=== PATIENT | female | born 1970 | race Caucasian/White ===

== ENCOUNTER → 2016-04-30 | Outpatient (REF) | payer OTHER ==
[~2016-04-30] MED LIST: CALCLIQ4 PO; CYAN25TA PO; MULTCAP PO; VITA200016 PO; VITA50003 PO; XANA1TAB2 PO; ZYRT10CA PO
== END ==
LOC: M SFHCWAGY 11:59
PROVIDERS: ATTEND Nurse Practitioner Family
DX: Z12.4 Encounter for screening for malignant neoplasm of cervix (principal)

== ENCOUNTER → 2016-05-10 | Outpatient (REF) | payer OTHER ==
[2016-05-10 18:37] LABS: MEAN CORPUSCULAR HEMOGLOBIN 25.6 pg (27.0-33.0); MEAN CORPUSCULAR HGB CONC 31.6 g/dl (32.0-36.5); MEAN CORPUSCULAR VOLUME 81.1 fl (80.0-96.0); RED CELL DISTRIBUTION WIDTH 15.3 % (11.5-14.5); WHITE BLOOD COUNT 4.1 K/mm3 (4.0-10.0)
[2016-05-10 18:54] LABS: VITAMIN B12 LEVEL 270 PG/ML (247-911)
[2016-05-10 18:59] LABS: ALBUMIN 3.4 GM/DL (3.2-5.2); ALKALINE PHOSPHATASE 110 U/L (45-117); ALT/SGPT 23 U/L (12-78); ANION GAP 7 MEQ/L (8-16); AST/SGOT 15 U/L (15-37); BILIRUBIN,TOTAL 0.4 MG/DL (0.2-1.0); BLOOD UREA NITROGEN 12 MG/DL (7-18); CALCIUM LEVEL 8.1 MG/DL (8.5-10.1); CARBON DIOXIDE LEVEL 28 MEQ/L (21-32); CHLORIDE LEVEL 105 MEQ/L (98-107); CREATININE FOR GFR 0.65 MG/DL (0.55-1.02); FERRITIN 4 NG/ML (8-252); GLOMERULAR FILTRATION RATE > 60.0 (>58); GLUCOSE, FASTING 89 MG/DL (70-105); POTASSIUM SERUM 4.4 MEQ/L (3.5-5.1); SODIUM LEVEL 140 MEQ/L (136-145); TOTAL PROTEIN 6.8 GM/DL (6.4-8.2)
== END ==
LOC: M SFHCLERA 14:17
PROVIDERS: ATTEND Physician Assistant
DX: D50.9 Iron deficiency anemia, unspecified (principal); E55.9 Vitamin D deficiency, unspecified

== ENCOUNTER → 2016-08-30 | Outpatient (REF) | payer OTHER ==
[2016-08-30 19:05] LABS: MEAN CORPUSCULAR HEMOGLOBIN 27.5 pg (27.0-33.0); MEAN CORPUSCULAR HGB CONC 32.1 g/dl (32.0-36.5); MEAN CORPUSCULAR VOLUME 85.6 fl (80.0-96.0); RED CELL DISTRIBUTION WIDTH 14.9 % (11.5-14.5); WHITE BLOOD COUNT 4.2 K/mm3 (4.0-10.0)
[2016-08-30 19:44] LABS: FERRITIN 5 NG/ML (8-252)
== END ==
LOC: M SFHCLERA 11:16
PROVIDERS: ATTEND Physician Assistant
DX: D50.8 Other iron deficiency anemias (principal)

== ENCOUNTER → 2017-02-07 | Outpatient (REF) | payer MEDICAID ==
[~2017-02-07] MED LIST changes: +VITA1CAP40 PO; -VITA50003 PO
[2017-02-07 16:53] LABS: MEAN CORPUSCULAR HEMOGLOBIN 29.7 pg (27.0-33.0); MEAN CORPUSCULAR HGB CONC 32.3 g/dl (32.0-36.5); PLATELET COUNT, AUTOMATED 353 10^3/uL (150-450); RED CELL DISTRIBUTION WIDTH 13.8 % (11.5-14.5); WHITE BLOOD COUNT 6.7 10^3/uL (4.0-10.0)
[2017-02-07 18:05] LABS: VITAMIN B12 LEVEL 236 PG/ML (247-911)
[2017-02-07 18:29] LABS: ALBUMIN 3.5 GM/DL (3.2-5.2); ALBUMIN/GLOBULIN RATIO 0.97 (1.00-1.93); ALKALINE PHOSPHATASE 96 U/L (45-117); ALT/SGPT 20 U/L (12-78); ANION GAP 7 MEQ/L (8-16); AST/SGOT 14 U/L (15-37); BILIRUBIN,TOTAL 0.4 MG/DL (0.2-1.0); BLOOD UREA NITROGEN 13 MG/DL (7-18); CALCIUM LEVEL 8.7 MG/DL (8.5-10.1); CARBON DIOXIDE LEVEL 29 MEQ/L (21-32); CHLORIDE LEVEL 103 MEQ/L (98-107); CREATININE FOR GFR 0.74 MG/DL (0.55-1.02); FERRITIN 22 NG/ML (8-252); GLOMERULAR FILTRATION RATE > 60.0 (>58); GLUCOSE, FASTING 62 MG/DL (70-105); POTASSIUM SERUM 4.7 MEQ/L (3.5-5.1); SODIUM LEVEL 139 MEQ/L (136-145); TOTAL PROTEIN 7.1 GM/DL (6.4-8.2)
== END ==
LOC: M SFHCLERA 12:14
PROVIDERS: ATTEND Physician Assistant
DX: D50.9 Iron deficiency anemia, unspecified (principal); E66.01 Morbid (severe) obesity due to excess calories

== ENCOUNTER → 2018-01-20 | Outpatient (CLI) | payer OTHER | LOC: M WUC 08:00 | DX: Z98.84 Bariatric surgery status (principal); Z13.1 Encounter for screening for diabetes mellitus; Z53.9 Procedure and treatment not carried out, unspecified reason ==

== ENCOUNTER → 2018-01-22 | Outpatient (CLI) | payer OTHER, SELFPAY ==
[2018-01-22 13:18] LABS: IRON (FE) 100 UG/DL (50-170)
[2018-01-22 13:25] LABS: ESTIMATED AVERAGE GLUCOSE 94 MG/DL (60-110); HEMOGLOBIN A1c 4.9 %
[2018-01-22 13:30] LABS: TOTAL 25(OH) VITAMIN D 44.8 NG/ML (30.0-100.0)
[2018-01-22 13:31] LABS: FOLATE 17.1 NG/ML
[2018-01-25 08:36] LABS: COPPER PLASMA 179 ug/dL (72-166); SELENIUM LEVEL BLOOD 169 ug/L (100-340); VITAMIN E(ALPHA TOCOPHEROL) 8.8 mg/L (7.0-25.1); VITAMIN E(GAMMA TOCOPHEROL) 1.3 mg/L (0.5-5.5); ZINC PLASMA 108 ug/dL (56-134)
[2018-01-29 14:44] LABS: VITAMIN K1 0.16 ng/mL (0.13-1.88)
[2018-01-29 14:44] LABS: VITAMIN A, RETINOL LEVEL 44.8 ug/dL (33.1-100.0)
== END ==
LOC: M WUC 11:46
DX: Z98.84 Bariatric surgery status (principal); Z13.1 Encounter for screening for diabetes mellitus
CPT/HCPCS: 82525

== ENCOUNTER → 2018-10-15 | Outpatient (REF) | payer OTHER, SELFPAY ==
[~2018-10-15] MED LIST changes: -CYAN25TA PO; -VITA1CAP40 PO; +VITA250T50 PO; +VITA50005 PO
[2018-10-15 13:29] LABS: MAGNESIUM LEVEL 2.1 MG/DL (1.8-2.4)
[2018-10-15 14:10] LABS: FOLLICLE STIMULATING HORMONE 28.1 mIU/mL; LUTEINIZING HORMONE 34.8 mIU/mL
[2018-10-22 00:09] LABS: COPPER PLASMA 139 ug/dL (72-166); ESTROGENS TOTAL 309 pg/mL (.); SELENIUM LEVEL BLOOD 195 ug/L (100-340); VITAMIN A, RETINOL LEVEL 44.8 ug/dL (20.1-62.0); VITAMIN E(ALPHA TOCOPHEROL) 8.6 mg/L (7.0-25.1); VITAMIN E(GAMMA TOCOPHEROL) 1.7 mg/L (0.5-5.5); VITAMIN K1 <.13 ng/mL (0.13-1.88); ZINC PLASMA 70 ug/dL (56-134)
== END ==
LOC: M SFHCPLAZ 11:24
PROVIDERS: ATTEND Family Medicine
DX: Z98.84 Bariatric surgery status (principal); N93.9 Abnormal uterine and vaginal bleeding, unspecified

== ENCOUNTER → 2018-10-20 | Outpatient (CLI) | payer OTHER, SELFPAY ==
--- NOTE | 2018-10-20 16:10 | REP ---
Clinical: Abnormal vaginal bleeding . Technique: Transabdominal pelvic ultrasound followed by transvaginal examination for better evaluation of the endometrium and adnexa with color Doppler evaluation of the ovaries. Findings: Bladder is unremarkable and measures 8.1 x 4.6 x 5.1 cm . Anteverted uterus measures 8.1 x 4.5 x 4.8 cm . The endometrial complex measures 12.1 mm thickness and a 9 x 8 x 7 mm endometrial polyp/mass is suggested. Bilateral ovaries are normal in appearance and vascularity without evidence for torsion. Right ovary measures 3.1 x 1.3 x 1.5 cm ; R I = 0.59 . Left ovary measures 3.7 x 2.8 x 3.0 cm with 1.9 x 1.7 x 2.0 cm physiologic cyst / follicle; R I = 0.53 . No pelvic fluid or adnexal mass lesion . Impression: 1. Subcentimeter endometrial polyp/mass suggested. 2. Normal bilateral ovaries without torsion. Electronically Signed by Craig Mcgarry MD 10/20/2018 04:02 P
== END ==
LOC: M RAD 14:27
PROVIDERS: ATTEND Family Medicine
DX: N93.9 Abnormal uterine and vaginal bleeding, unspecified (principal); N83.202 Unspecified ovarian cyst, left side

== ENCOUNTER 2019-01-02 12:37 | Day surgery (SDC) | payer BC ==
[~2019-01-02] VITALS: Ht 152.4 cm; Wt 93.8 kg
[~2019-01-02 12:37] MED LIST changes: +ALLE180T33 PO; +CALCTAB7 PO; +LR 1,000 ML IV ONE
[2019-01-02] MEDS ORDERED: fentaNYL 100 MCG/2 ML INJECTION (J3010) As Ordered ONE (12:54)
[2019-01-02] MEDS ORDERED: ONDANSETRON 4MG/2ML VIAL (J2405) As Ordered ONE (12:54)
[2019-01-02] MEDS ORDERED: PROPOFOL 200 MG/20 ML VIAL As Ordered ONE (12:54)
[2019-01-02] MEDS ORDERED: LIDOCAINE 2% INJ 100 MG/5 ML SDV (FOR ANES.) As Ordered ONE (12:54)
[2019-01-02] MEDS ORDERED: MIDAZOLAM INJ 2 MG/2 ML VIAL (J2250) As Ordered ONE (12:54)
[2019-01-02] MEDS ORDERED: dexameTHASONE 4 MG/ML 1ML VIAL (J1100) As Ordered ONE (12:54)
[2019-01-02 13:14] LABS: HEMATOCRIT 38.1 % (36.0-47.0); HEMOGLOBIN 12.9 g/dl (12.0-15.5); MEAN CORPUSCULAR HEMOGLOBIN 30.4 pg (27.0-33.0); MEAN CORPUSCULAR HGB CONC 33.9 g/dl (32.0-36.5); MEAN CORPUSCULAR VOLUME 89.6 fl (80.0-96.0); PLATELET COUNT, AUTOMATED 291 10^3/uL (150-450); RED BLOOD COUNT 4.25 10^6/uL (4.00-5.40); WHITE BLOOD COUNT 4.2 10^3/uL (4.0-10.0)
[2019-01-02 13:42] LABS: HCG, SERUM QUALITATIVE NEGATIVE (NEGATIVE)
[2019-01-02] MEDS ORDERED: SILVER NITRATE APPLICATOR As Ordered ONE (14:02)
[2019-01-02] MEDS ORDERED: KETOROLAC 60 MG/2 ML VIAL (J1885) As Ordered ONE (15:04)
[2019-01-02] MEDS ORDERED: fentaNYL 100 MCG/2 ML INJECTION (J3010) IV PRN (15:30)
[2019-01-02] MEDS ORDERED: PERCOCET 5MG/325MG TAB PO PRN (15:30)
[2019-01-02] MEDS ORDERED: ONDANSETRON 4MG/2ML VIAL (J2405) IV PRN (15:30)
[2019-01-02] MEDS ORDERED: LR 1,000 ML IV SCH ×2 (15:30)
[2019-01-02 16:50] VITALS: BP 126/90
--- NOTE | 2019-01-05 12:54 | RO ---
DATE OF PROCEDURE: 01/02/2019 PREOPERATIVE DIAGNOSIS: Endometrial mass/polyp, abnormal uterine bleeding. POSTOPERATIVE DIAGNOSIS: Endometrial mass/polyp, abnormal uterine bleeding. FINDINGS: Approximately 1-2 cm elongated endometrial mass originating at the fundus and extending down to the level of the lower uterine segment/internal os. No additional masses were noted. No evidence of uterine perforation during the entire procedure. PROCEDURE: 1. Hysteroscopy, dilatation and curettage (D and C). 2. MyoSure polypectomy. SURGEON: Dr. Taqueria Juarez PROGRAMMER BUSINESS: None. ANESTHESIA: General via laryngeal mask airway (LMA). SPECIMENS TO PATHOLOGY: 1. Morcellated endometrial mass. 2. Endometrial curettings. ESTIMATED BLOOD LOSS: 10 mL. FLUIDS REPLACED: 700 mL lactated Ringer's. DRAINS: In-and-out catheter 40 mL. COMPLICATIONS: None. FLUID DEFICIT: Normal saline 55 mL. PREOPERATIVE ANTIBIOTICS: None indicated. INDICATION: The patient is a 48-year-old with abnormal uterine bleeding. A pelvic ultrasound revealed evidence of a possible endometrial mass/polyp. The decision was made to proceed in the operating room under anesthesia for a hysteroscopy, D and C, and polypectomy with the MyoSure device. DESCRIPTION OF PROCEDURE: The patient was counseled and consented on the risks, benefits, indications, and alternatives of the procedure. Informed consent was obtained. She was taken to the operating room with an IV running and placed on the operating table in dorsal supine position. General anesthesia was administered. The airway was secured without any difficulty. She was then placed in the high lithotomy position and she was prepared and draped in a normal sterile fashion. A time out was performed per protocol. The bladder was drained with a sterile in-and-out catheter. A sterile speculum was placed with good visualization of the cervix. The anterior lip of the cervix was grasped with a single-tooth tenaculum and downward traction was applied. The uterus sounded to 8 cm. The cervix was sequentially dilated with Nroman dilators up to #16. The hysteroscope was placed transcervically into the intrauterine cavity with the findings noted above. The MyoSure device was placed right up against this mass and activated. The mass was removed in its entirety. A smooth uterine contour was noted after removal of this mass and a lifeline representatives image was taken. No significant bleeding was noted. The hysteroscope was removed along with the MyoSure. The sharp curette was placed transcervically into the intrauterine cavity. Again, no evidence of uterine perforation at this time and sharp curettage was performed throughout the cavity until a gritty texture was noted throughout. Minimal tissue return with the curettage and minimal bleeding. The curette was removed. The single-tooth tenaculum was removed. The tenaculum sites were noted be hemostatic. Sponge, instrument and needle counts were correct per protocol. The patient tolerated the entire procedure very well. She was transferred to the postanesthesia care unit (PACU) in good and stable condition.
== END 2019-01-02 16:55 | disposition home or self-care (01) ==
LOC: M SDC 12:37
PROVIDERS: ATTEND Obstetrics & Gynecology
DX: N92.6 Irregular menstruation, unspecified (principal); N84.0 Polyp of corpus uteri; N85.01 Benign endometrial hyperplasia; D64.9 Anemia, unspecified; F41.9 Anxiety disorder, unspecified; Z79.899 Other long term (current) drug therapy
CPT/HCPCS: 36415; 58558; 84703; 85027; 86850; 86900; 86901; 88305; J1100; J1885; J2250; J2405; J3010

== ENCOUNTER 2019-02-26 13:42 | Emergency (ER) | payer BC ==
[~2019-02-26] VITALS: Ht 152.4 cm; Wt 95.0 kg
[~2019-02-26 13:42] MED LIST changes: -LR 1,000 ML IV ONE
[2019-02-26 15:13] LABS: BASO % 0.4 % (0.0-1.0); EOS # 0.1 10^3/uL (0.0-0.5); EOS % 1.5 % (0.0-3.0); HEMATOCRIT 44.7 % (36.0-47.0); HEMOGLOBIN 14.4 g/dl (12.0-15.5); LYMPH # 1.5 10^3/uL (1.5-5.0); MEAN CORPUSCULAR HEMOGLOBIN 29.2 pg (27.0-33.0); MEAN CORPUSCULAR HGB CONC 32.2 g/dl (32.0-36.5); MEAN CORPUSCULAR VOLUME 90.7 fl (80.0-96.0); MONO # 0.4 10^3/uL (0.0-0.8); MONO % 7.4 % (0.0-5.0); NEUTROPHILS # 2.8 10^3/uL (1.5-8.5); NEUTROPHILS % 59.5 % (36.0-66.0); PLATELET COUNT, AUTOMATED 359 10^3/uL (150-450); RED BLOOD COUNT 4.93 10^6/uL (4.00-5.40); WHITE BLOOD COUNT 4.7 10^3/uL (4.0-10.0)
[2019-02-26 15:32] LABS: INR 0.92; PROTHROMBIN TIME 12.1 SECONDS (11.8-14.0)
[2019-02-26 15:39] LABS: ALBUMIN 3.8 GM/DL (3.2-5.2); ALT/SGPT 27 U/L (12-78); BILIRUBIN,DIRECT 0.2 MG/DL (0.0-0.2); BILIRUBIN,TOTAL 0.7 MG/DL (0.2-1.0); BLOOD UREA NITROGEN 14 MG/DL (7-18); CALCIUM LEVEL 9.3 MG/DL (8.5-10.1); CARBON DIOXIDE LEVEL 31 MEQ/L (21-32); CHLORIDE LEVEL 104 MEQ/L (98-107); CK-MB VALUE MASS < 1.0 NG/ML (<3.6); CPK CREATINE PHOSPHOKINASE 96 U/L (26-192); GLOMERULAR FILTRATION RATE > 60.0 (>58); GLUCOSE, FASTING 72 MG/DL (70-100); LIPASE 121 U/L (73-393); MB/CK RELATIVE INDEX 1.04 (< OR =4); POTASSIUM SERUM 4.6 MEQ/L (3.5-5.1); SODIUM LEVEL 138 MEQ/L (136-145); TOTAL PROTEIN 7.6 GM/DL (6.4-8.2); TROPONIN I < 0.02 NG/ML (< 0.10)
[2019-02-26 15:59] LABS: D-DIMER QUANT 329.91 ng/ml (<500)
[2019-02-26 16:13] VITALS: BP 135/86
--- NOTE | 2019-02-26 16:24 | REP ---
Portable chest x-ray: Single view. History: Chest pain. Findings: The lungs are well inflated and clear. The pleural angles are sharp. Heart size is normal. Pulmonary vasculature is not increased. No significant bony abnormality. Impression: Negative portable chest x-ray. Electronically Signed by Aleksandr Barros MD 02/26/2019 04:15 P
[2019-02-26] MEDS ORDERED: IBUP-1114 PO (16:48)
--- NOTE | 2019-02-26 20:58 | ECGEPIP ---
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
== END 2019-02-26 16:58 | disposition home or self-care (01) ==
LOC: M ED 13:42
DX: R07.89 Other chest pain (principal); N39.0 Urinary tract infection, site not specified; F41.9 Anxiety disorder, unspecified; Z98.84 Bariatric surgery status; Z79.899 Other long term (current) drug therapy

== ENCOUNTER → 2020-08-08 | Outpatient (CLI) | payer BC ==
[~2020-08-08] MED LIST changes: +CALC-211 PO; -CALCTAB7 PO; +IBUP-1114 PO; -VITA250T50 PO; +VITA250T7 PO
--- NOTE | 2020-08-08 12:20 | REP ---
INDICATION: PAIN. COMPARISON: None. TECHNIQUE: Three views of the shoulder were performed. FINDINGS: The acromioclavicular and glenohumeral relationships are within normal limits. There is no acute fracture or destructive osseous lesion. IMPRESSION: No acute disease <Electronically signed by Shane Barnett > 08/08/20 [id number]
--- NOTE | 2020-08-08 12:28 | REP ---
INDICATION: PAIN. COMPARISON: None TECHNIQUE: AP, lateral and open mouth views. FINDINGS: AP, lateral and open mouth views. Limited three views Vertebral body height and alignment is within normal limits. The disc spaces are symmetric and well maintained with slight narrowing seen at the C6-7 level with slight anterior lipping. The facet joints appear to be well aligned bilaterally. IMPRESSION: Mild chronic changes as described. Although this plain radiographic evaluation of the cervical spine shows no evidence of a fracture, it should be remembered that CT is much more sensitive than plain radiography of the C-spine in detecting fractures. If this examination was ordered to rule out a fracture then CT of the cervical spine is recommended. The dens cannot be effectively evaluated secondary to the superimposition of osseous structures and/or dentition on all views. <Electronically signed by Shane Barnett > 08/08/20 [id number]
[2020-08-08 13:44] LABS: BASO % 0.4 % (0.0-1.0); EOS # 0.1 10^3/uL (0.0-0.5); EOS % 1.2 % (0.0-3.0); HEMATOCRIT 38.6 % (36.0-47.0); HEMOGLOBIN 12.3 g/dl (12.0-15.5); LYMPH # 1.7 10^3/uL (1.5-5.0); LYMPH % 33.8 % (24.0-44.0); MEAN CORPUSCULAR HEMOGLOBIN 28.7 pg (27.0-33.0); MEAN CORPUSCULAR HGB CONC 31.9 g/dl (32.0-36.5); MEAN CORPUSCULAR VOLUME 90.2 fl (80.0-96.0); MONO # 0.4 10^3/uL (0.0-0.8); MONO % 7.2 % (2.0-8.0); NEUTROPHILS # 2.9 10^3/uL (1.5-8.5); PLATELET COUNT, AUTOMATED 379 10^3/uL (150-450); RED BLOOD COUNT 4.28 10^6/uL (4.00-5.40); WHITE BLOOD COUNT 5.2 10^3/uL (4.0-10.0)
[2020-08-08 14:46] LABS: HEMOGLOBIN A1c 5.2 %
[2020-08-08 17:25] LABS: ALBUMIN 3.7 GM/DL (3.2-5.2); ALT/SGPT 40 U/L (12-78); BILIRUBIN,TOTAL 0.6 MG/DL (0.2-1.0); BLOOD UREA NITROGEN 17 MG/DL (7-18); CALCIUM LEVEL 9.2 MG/DL (8.5-10.1); CARBON DIOXIDE LEVEL 30 MEQ/L (21-32); CHLORIDE LEVEL 104 MEQ/L (98-107); CHOLESTEROL LEVEL 232 MG/DL (<200); CHOLESTEROL RISK RATIO 2.521 (<5); CREATININE FOR GFR 0.74 MG/DL (0.55-1.30); FREE T4 0.99 NG/DL (0.76-1.46); GLOMERULAR FILTRATION RATE > 60.0 (>58); GLUCOSE, FASTING 65 MG/DL (70-100); HDL CHOLESTEROL 92 MG/DL (>40); IRON (FE) 75 UG/DL (50-170); LDL CHOLESTEROL 128 MG/DL (<100); NON-HDL-C 140 MG/DL; POTASSIUM SERUM 4.6 MEQ/L (3.5-5.1); SODIUM LEVEL 140 MEQ/L (136-145); TOTAL PROTEIN 7.1 GM/DL (6.4-8.2); TRIGLYCERIDES LEVEL 58 MG/DL (<150); VITAMIN B12 LEVEL 1391 PG/ML (247-911)
[2020-08-08 17:29] LABS: TOTAL 25(OH) VITAMIN D 28.8 NG/ML (30.0-100.0)
== END ==
LOC: M WUC 11:30
PROVIDERS: ATTEND Physician Assistant
DX: Z00.00 Encounter for general adult medical examination without abnormal findings (principal); Z68.36 Body mass index [BMI] 36.0-36.9, adult; R78.79 Finding of abnormal level of heavy metals in blood; E55.9 Vitamin D deficiency, unspecified; Z98.84 Bariatric surgery status; Z13.29 Encounter for screening for other suspected endocrine disorder; Z13.220 Encounter for screening for lipoid disorders; M54.2 Cervicalgia; M25.511 Pain in right shoulder

== ENCOUNTER → 2021-04-13 | Outpatient (CLI) | payer BC ==
--- NOTE | 2021-04-13 15:01 | REP ---
INDICATION: RT LOWER QUAD PAIN COMPARISON: 10/20/2018 TECHNIQUE: Transabdominal pelvic ultrasound followed by transvaginal examination for better evaluation of the endometrium and adnexa with color Doppler evaluation of the ovaries. FINDINGS: Bladder is unremarkable and measures 7.6 x 5.2 x 6.8 cm. Normal anteverted uterus measures 6.6 x 3.2 x 4.3 cm. The endometrial complex measures 4 mm thickness. No discrete uterine or endometrial abnormalities are appreciated. Bilateral ovaries are normal in appearance and vascularity without evidence for torsion. Right ovary measures 1.9 x 1.1 x 1.2 cm; R I = 0.59. Left ovary measures 2.2 x 1.6 x 2.0 cm; R I = 0.40. No pelvic fluid or adnexal mass lesion. IMPRESSION: Normal pelvic ultrasound <Electronically signed by Craig Mcgarry > 04/13/21 [id number]
== END ==
LOC: M WHC 13:31
PROVIDERS: ATTEND Physician Assistant
DX: R10.31 Right lower quadrant pain (principal)

== ENCOUNTER → 2021-05-18 | Outpatient (REF) | LOC: M LABSMTC 12:40 | PROVIDERS: ATTEND Pediatrics | DX: Z11.52 Encounter for screening for COVID-19 (principal) ==

== ENCOUNTER → 2021-08-23 | Outpatient (CLI) | payer BC ==
[2021-08-23 15:38] LABS: BASO % 0.7 % (0.0-1.0); EOS # 0.1 10^3/uL (0.0-0.5); EOS % 1.9 % (0.0-3.0); LYMPH # 1.9 10^3/uL (1.5-5.0); MEAN CORPUSCULAR HEMOGLOBIN 27.1 pg (27.0-33.0); MEAN CORPUSCULAR HGB CONC 31.6 g/dl (32.0-36.5); MONO # 0.5 10^3/uL (0.0-0.8); NEUTROPHILS # 3.2 10^3/uL (1.5-8.5); NEUTROPHILS % 55.1 % (36.0-66.0); PLATELET COUNT, AUTOMATED 388 10^3/uL (150-450); RED BLOOD COUNT 4.42 10^6/uL (4.00-5.40); WHITE BLOOD COUNT 5.8 10^3/uL (4.0-10.0)
[2021-08-23 18:52] LABS: ALBUMIN 3.7 GM/DL (3.2-5.2); ALT/SGPT 23 U/L (12-78); BILIRUBIN,TOTAL 0.6 MG/DL (0.2-1.0); BLOOD UREA NITROGEN 20 MG/DL (7-18); CALCIUM LEVEL 9.7 MG/DL (8.5-10.1); CARBON DIOXIDE LEVEL 29 MEQ/L (21-32); CHLORIDE LEVEL 107 MEQ/L (98-107); CHOLESTEROL LEVEL 233 MG/DL (<200); CHOLESTEROL RISK RATIO 2.949 (<5); CREATININE FOR GFR 0.54 MG/DL (0.55-1.30); FERRITIN 8 NG/ML (8-252); FREE T4 1.01 NG/DL (0.76-1.46); GLOMERULAR FILTRATION RATE > 60.0 (>58); GLUCOSE, FASTING 78 MG/DL (70-100); HDL CHOLESTEROL 79 MG/DL (>40); IRON (FE) 62 UG/DL (50-170); LDL CHOLESTEROL 139 MG/DL (<100); NON-HDL-C 154 MG/DL; POTASSIUM SERUM 4.7 MEQ/L (3.5-5.1); PTH INTACT 119.9 PG/ML (18.5-88.0); SODIUM LEVEL 141 MEQ/L (136-145); TOTAL 25(OH) VITAMIN D 16.3 NG/ML (30.0-100.0); TRIGLYCERIDES LEVEL 74 MG/DL (<150); VITAMIN B12 LEVEL 477 PG/ML (247-911)
== END ==
LOC: M PLALAB 13:56
PROVIDERS: ATTEND Physician Assistant Medical
DX: E55.9 Vitamin D deficiency, unspecified (principal); D41.9 Neoplasm of uncertain behavior of unspecified urinary organ; D50.9 Iron deficiency anemia, unspecified; Z13.220 Encounter for screening for lipoid disorders; Z98.84 Bariatric surgery status; R78.79 Finding of abnormal level of heavy metals in blood; S99.912A Unspecified injury of left ankle, initial encounter; X58.XXXA Exposure to other specified factors, initial encounter; Y92.9 Unspecified place or not applicable; Y93.9 Activity, unspecified; Y99.9 Unspecified external cause status

== ENCOUNTER → 2021-09-06 | Outpatient (CLI) | payer BC | LOC: M WUC 10:37 | PROVIDERS: ATTEND Physician Assistant Medical | DX: R78.79 Finding of abnormal level of heavy metals in blood (principal) ==

== ENCOUNTER → 2022-05-03 | Outpatient (CLI) | payer BC | LOC: M WHC 12:28 | PROVIDERS: ATTEND Physician Assistant Medical | DX: Z12.31 Encounter for screening mammogram for malignant neoplasm of breast (principal) ==

== ENCOUNTER → 2022-08-22 | Outpatient (CLI) | payer BC ==
[2022-08-22 15:55] LABS: BASO % 0.3 % (0.0-1.0); EOS # 0.1 10^3/uL (0.0-0.5); EOS % 1.9 % (0.0-3.0); HEMATOCRIT 37.4 % (36.0-47.0); HEMOGLOBIN 11.8 g/dl (12.0-15.5); LYMPH # 2.1 10^3/uL (1.5-5.0); LYMPH % 32.9 % (24.0-44.0); MEAN CORPUSCULAR HEMOGLOBIN 27.3 pg (27.0-33.0); MEAN CORPUSCULAR HGB CONC 31.6 g/dl (32.0-36.5); MEAN CORPUSCULAR VOLUME 86.6 fl (80.0-96.0); MONO # 0.5 10^3/uL (0.0-0.8); MONO % 7.2 % (2.0-8.0); NEUTROPHILS # 3.6 10^3/uL (1.5-8.5); NEUTROPHILS % 57.4 % (36.0-66.0); PLATELET COUNT, AUTOMATED 365 10^3/uL (150-450); RED BLOOD COUNT 4.32 10^6/uL (4.00-5.40); WHITE BLOOD COUNT 6.2 10^3/uL (4.0-10.0)
[2022-08-22 16:26] LABS: ALBUMIN 3.7 G/DL (3.2-5.2); ALKALINE PHOSPHATASE 139 U/L (46-116); ALT/SGPT 23 U/L (7.0-40); AST/SGOT 24 U/L (<34); BILIRUBIN,TOTAL 0.6 MG/DL (0.3-1.2); BLOOD UREA NITROGEN 16 MG/DL (9-23); CALCIUM LEVEL 9.1 MG/DL (8.5-10.1); CARBON DIOXIDE LEVEL 30 MMOL/L (20-31); CHLORIDE LEVEL 107 MMOL/L (98-107); CREATININE FOR GFR 0.65 MG/DL (0.55-1.30); GLOMERULAR FILTRATION RATE > 60.0 (>51); GLUCOSE, FASTING 78 MG/DL (60-100); POTASSIUM SERUM 4.9 MMOL/L (3.5-5.1); PTH INTACT 122.6 PG/ML (18.5-88.0); SODIUM LEVEL 141 MMOL/L (136-145); TOTAL PROTEIN 6.6 G/DL (5.7-8.2)
== END ==
LOC: M PLALAB 12:38
PROVIDERS: ATTEND Physician Assistant Medical
DX: E55.9 Vitamin D deficiency, unspecified (principal); D50.9 Iron deficiency anemia, unspecified

== ENCOUNTER → 2022-09-12 | Outpatient (CLI) | payer BC | LOC: M PLAIMG 10:15 | PROVIDERS: ATTEND Physician Assistant Medical | DX: M54.2 Cervicalgia (principal) ==

== ENCOUNTER → 2022-10-11 | Outpatient (CLI) | payer BC | LOC: M WHC 10:05 | PROVIDERS: ATTEND Physician Assistant Medical | DX: E04.1 Nontoxic single thyroid nodule (principal) ==

== ENCOUNTER → 2022-12-05 | Outpatient (CLI) | payer BC | LOC: M RAD 12:12 | PROVIDERS: ATTEND Physician Assistant | DX: J32.9 Chronic sinusitis, unspecified (principal) ==

== ENCOUNTER → 2023-08-16 | Outpatient (CLI) | payer OTHER ==
[2023-08-16 17:05] LABS: BASO % 0.5 % (0.0-1.0); EOS # 0.1 10^3/uL (0.0-0.5); EOS % 1.5 % (0.0-3.0); HEMATOCRIT 37.5 % (36.0-47.0); HEMOGLOBIN 12.4 g/dl (12.0-15.5); LYMPH # 1.9 10^3/uL (1.5-5.0); LYMPH % 31.7 % (24.0-44.0); MEAN CORPUSCULAR HEMOGLOBIN 28.8 pg (27.0-33.0); MEAN CORPUSCULAR HGB CONC 33.1 g/dl (32.0-36.5); MEAN CORPUSCULAR VOLUME 87.2 fl (80.0-96.0); MONO # 0.5 10^3/uL (0.0-0.8); MONO % 7.4 % (2.0-8.0); NEUTROPHILS # 3.5 10^3/uL (1.5-8.5); NEUTROPHILS % 58.2 % (36.0-66.0); PLATELET COUNT, AUTOMATED 356 10^3/uL (150-450); WHITE BLOOD COUNT 6.1 10^3/uL (4.0-10.0)
[2023-08-16 18:02] LABS: ALBUMIN 3.6 G/DL (3.2-5.2); ALKALINE PHOSPHATASE 160 U/L (46-116); ALT/SGPT 37 U/L (7.0-40); AST/SGOT 20 U/L (<34); BILIRUBIN,TOTAL 0.2 MG/DL (0.3-1.2); BLOOD UREA NITROGEN 21 MG/DL (9-23); CALCIUM LEVEL 9.5 MG/DL (8.5-10.1); CARBON DIOXIDE LEVEL 30 MMOL/L (20-31); CHLORIDE LEVEL 106 MMOL/L (98-107); CREATININE FOR GFR 0.71 MG/DL (0.55-1.30); FERRITIN 11.7 NG/ML (7.3-270.7); FREE T4 1.04 NG/DL (0.89-1.76); GLOMERULAR FILTRATION RATE > 60.0 (>51); GLUCOSE, FASTING 84 MG/DL (60-100); IRON (FE) 121 UG/DL (50-170); POTASSIUM SERUM 4.5 MMOL/L (3.5-5.1); PTH INTACT 116.5 PG/ML (18.5-88.0); SODIUM LEVEL 142 MMOL/L (136-145); THYROID STIMULATING HORMONE 2.586 uIU/ML (0.55-4.78); TOTAL 25(OH) VITAMIN D 47.4 NG/ML (20.0-100.0); TOTAL PROTEIN 6.6 G/DL (5.7-8.2)
== END ==
LOC: M LAB 16:23
PROVIDERS: ATTEND Physician Assistant Medical
DX: E55.9 Vitamin D deficiency, unspecified (principal); Z98.84 Bariatric surgery status; E66.01 Morbid (severe) obesity due to excess calories; F34.1 Dysthymic disorder

== ENCOUNTER 2023-09-04 13:26 | Outpatient (CLI) | payer OTHER ==
[~2023-09-04] VITALS: Ht 152.4 cm; Wt 115.0 kg
[~2023-09-04 13:26] MED LIST changes: +ALBUTEROL SULFATE 2.5MG/0.5ML INH NEB SOLN INH PRN; +EPINEPHrine INJ 1 MG/ML 1ML AMP IM PRN; +diphenhydrAMINE 50MG/ML VIAL IV PRN; +methylPREDNISolone 125MG 2ML VIAL IV PRN
[2023-09-04 13:30] VITALS: BP 130/73; O2SAT 100
[2023-09-04] MEDS ORDERED: NS 1,000 ML IV SCH (13:30)
[2023-09-04] MEDS: IRON SUCROSE 250 MG in NS 237.5 ML IV ONE (14:16)
[2023-09-04] MEDS: ACETAMINOPHEN TAB 650MG DOSE (2X325MG) PO ONE (14:20)
[2023-09-04] MEDS: diphenhydrAMINE 25MG CAP PO ONE (14:20)
[2023-09-04 15:45] VITALS: BP 108/55; O2SAT 100
== END 2023-09-04 15:45 | disposition home or self-care (01) ==
LOC: M INFU 13:26
PROVIDERS: ATTEND Physician Assistant Medical
DX: E61.1 Iron deficiency (principal)
CPT/HCPCS: 96365; J1756

== ENCOUNTER 2023-09-19 15:05 | Outpatient (CLI) | payer OTHER ==
[~2023-09-19] VITALS: Ht 152.4 cm; Wt 114.0 kg
[2023-09-19 15:05] VITALS: BP 134/83; O2SAT 100
[~2023-09-19 15:05] MED LIST changes: +ACETAMINOPHEN 650MG PO PRIOR TO INFUSION PO ONE; +NS 1,000 ML IV SCH; +diphenhydrAMINE 25MG PO PRIOR TO INFUSION PO ONE
[2023-09-19] MEDS: IRON SUCROSE 250 MG in NS 237.5 ML IV ONE (15:24)
[2023-09-19 16:53] VITALS: BP 176/77; O2SAT 98
== END 2023-09-19 16:54 | disposition home or self-care (01) ==
LOC: M INFU 15:05
PROVIDERS: ATTEND Physician Assistant Medical
DX: E61.1 Iron deficiency (principal)
CPT/HCPCS: 96365; J1756

== ENCOUNTER 2023-10-07 11:00 | Outpatient (CLI) | payer OTHER ==
[~2023-10-07] VITALS: Ht 152.4 cm; Wt 115.0 kg
[2023-10-07 11:00] VITALS: BP 118/62; O2SAT 100
[~2023-10-07 11:00] MED LIST changes: -ACETAMINOPHEN 650MG PO PRIOR TO INFUSION PO ONE; +diphenhydrAMINE 25MG CAP PO ONE; -diphenhydrAMINE 25MG PO PRIOR TO INFUSION PO ONE
[2023-10-07] MEDS: ACETAMINOPHEN TAB 650MG DOSE (2X325MG) PO ONE (11:14)
[2023-10-07] MEDS: IRON SUCROSE 250 MG in NS 237.5 ML IV ONE (11:36)
[2023-10-07 13:04] VITALS: BP 143/90; O2SAT 98
== END 2023-10-07 13:08 ==
LOC: M INFU 11:00
PROVIDERS: ATTEND Physician Assistant Medical
DX: E61.1 Iron deficiency (principal)
CPT/HCPCS: 96365; J1756

== ENCOUNTER → 2023-10-28 | Outpatient (CLI) | payer OTHER ==
[~2023-10-28] MED LIST changes: -ALBUTEROL SULFATE 2.5MG/0.5ML INH NEB SOLN INH PRN; -EPINEPHrine INJ 1 MG/ML 1ML AMP IM PRN; -NS 1,000 ML IV SCH; -diphenhydrAMINE 25MG CAP PO ONE; -diphenhydrAMINE 50MG/ML VIAL IV PRN; -methylPREDNISolone 125MG 2ML VIAL IV PRN
[2023-10-28 18:02] LABS: FERRITIN 96.4 NG/ML (7.3-270.7)
== END ==
LOC: M WUC 14:28
PROVIDERS: ATTEND Physician Assistant Medical
DX: E61.1 Iron deficiency (principal)

== ENCOUNTER → 2023-11-10 | Outpatient (CLI) | payer OTHER ==
[2023-11-10 13:52] LABS: FREE T4 1.02 NG/DL (0.89-1.76); THYROID STIMULATING HORMONE 1.929 uIU/ML (0.55-4.78)
== END ==
LOC: M RAD 12:39
PROVIDERS: ATTEND Physician Assistant Medical
DX: E04.1 Nontoxic single thyroid nodule (principal); R07.89 Other chest pain

== ENCOUNTER → 2023-12-09 | Outpatient (CLI) | payer OTHER | LOC: M RAD 08:15 | PROVIDERS: ATTEND Physician Assistant Medical | DX: E04.1 Nontoxic single thyroid nodule (principal); E66.01 Morbid (severe) obesity due to excess calories; N28.1 Cyst of kidney, acquired ==

== ENCOUNTER → 2024-08-06 | Outpatient (CLI) | payer OTHER ==
[2024-08-06 18:57] LABS: BASO % 0.3 % (0.0-1.0); EOS # 0.2 10^3/uL (0.0-0.5); HEMATOCRIT 39.4 % (36.0-47.0); HEMOGLOBIN 13.1 g/dl (12.0-15.5); LYMPH # 2.1 10^3/uL (1.5-5.0); LYMPH % 28.2 % (24.0-44.0); MEAN CORPUSCULAR HGB CONC 33.2 g/dl (32.0-36.5); MEAN CORPUSCULAR VOLUME 90.4 fl (80.0-96.0); MONO # 0.5 10^3/uL (0.0-0.8); MONO % 6.4 % (2.0-8.0); NEUTROPHILS # 4.7 10^3/uL (1.5-8.5); NEUTROPHILS % 62.8 % (36.0-66.0); PLATELET COUNT, AUTOMATED 386 10^3/uL (150-450); RED BLOOD COUNT 4.36 10^6/uL (4.00-5.40); WHITE BLOOD COUNT 7.5 10^3/uL (4.0-10.0)
[2024-08-06 19:10] LABS: ALBUMIN 3.5 G/DL (3.2-5.2); ALKALINE PHOSPHATASE 136 U/L (35-104); ALT/SGPT 24 U/L (7.0-40); AST/SGOT 16 U/L (<34); BILIRUBIN,TOTAL 0.4 MG/DL (0.3-1.2); BLOOD UREA NITROGEN 14 MG/DL (9-23); CALCIUM LEVEL 8.9 MG/DL (8.5-10.1); CARBON DIOXIDE LEVEL 30 MMOL/L (20-31); CHLORIDE LEVEL 102 MMOL/L (98-107); CREATININE FOR GFR 0.66 MG/DL (0.55-1.30); FERRITIN 60.3 NG/ML (7.3-270.7); GLOMERULAR FILTRATION RATE > 90.0 (>51); GLUCOSE, FASTING 90 MG/DL (60-100); IRON (FE) 61 UG/DL (50-170); POTASSIUM SERUM 4.5 MMOL/L (3.5-5.1); SODIUM LEVEL 140 MMOL/L (136-145); TOTAL 25(OH) VITAMIN D 27.5 NG/ML (20.0-100.0); TOTAL PROTEIN 6.7 G/DL (5.7-8.2)
[2024-08-06 19:11] LABS: FREE T4 1.14 NG/DL (0.89-1.76); VITAMIN B12 LEVEL 472 PG/ML (211-911)
== END ==
LOC: M PLALAB 15:01
PROVIDERS: ATTEND Physician Assistant Medical
DX: E04.1 Nontoxic single thyroid nodule (principal); J30.9 Allergic rhinitis, unspecified; E55.9 Vitamin D deficiency, unspecified; Z98.84 Bariatric surgery status

== ENCOUNTER → 2025-04-08 | Outpatient (CLI) | payer OTHER ==
[~2025-04-08] MED LIST changes: +CYAN250T5 PO; -VITA250T7 PO
[2025-04-08 13:50] LABS: BASO # 0.0 10^3/uL (0.0-0.2); BASO % 0.5 % (0.0-1.0); EOS # 0.1 10^3/uL (0.0-0.5); EOS % 1.2 % (0.0-3.0); LYMPH # 2.1 10^3/uL (1.5-5.0); LYMPH % 31.7 % (24.0-44.0); MONO # 0.5 10^3/uL (0.0-0.8); MONO % 7.5 % (2.0-8.0); NEUTROPHILS # 3.9 10^3/uL (1.5-8.5); NEUTROPHILS % 58.8 % (36.0-66.0); PLATELET COUNT, AUTOMATED 410 10^3/uL (150-450)
[2025-04-08 13:55] LABS: C REACTIVE PROTEIN QUANTITATIV 0.67 MG/DL (<1.0)
[2025-04-08 13:56] LABS: ALT/SGPT 22 U/L (7.0-40); AST/SGOT 21 U/L (<34); CALCIUM LEVEL 9.6 MG/DL (8.5-10.1); CARBON DIOXIDE LEVEL 25 MMOL/L (20-31); CHLORIDE LEVEL 105 MMOL/L (98-107); CREATININE FOR GFR 0.74 MG/DL (0.55-1.30); GLOMERULAR FILTRATION RATE > 90.0 (>51); POTASSIUM SERUM 4.4 MMOL/L (3.5-5.1); SODIUM LEVEL 141 MMOL/L (136-145)
[2025-04-08 14:04] LABS: ESTIMATED AVERAGE GLUCOSE 97.0 MG/DL (60-110)
== END ==
LOC: M PLALAB 10:29
PROVIDERS: ATTEND Physician Assistant Medical
DX: K75.81 Nonalcoholic steatohepatitis (NASH) (principal); R59.1 Generalized enlarged lymph nodes; Z12.11 Encounter for screening for malignant neoplasm of colon

== ENCOUNTER → 2025-04-12 | Outpatient (CLI) | payer OTHER | LOC: M RAD 14:30 | PROVIDERS: ATTEND Physician Assistant Medical | DX: R59.1 Generalized enlarged lymph nodes (principal) ==

== ENCOUNTER 2025-04-16 16:27 | Emergency (ER) | payer OTHER ==
[~2025-04-16] VITALS: Ht 149.9 cm; Wt 106.6 kg
[2025-04-16] MEDS ORDERED: calcium/mag/zinc PO (16:50)
[2025-04-16] MEDS ORDERED: ERGO500029 PO (16:50)
[2025-04-16] MEDS ORDERED: PHEN15CA6 PO (16:50)
[2025-04-16] MEDS ORDERED: TOPI-21 PO (16:50)
[2025-04-16] MEDS: NS (Normal Saline) 0.9% 1,000 ML IV ONE (17:23)
[2025-04-16 17:28] LABS: BASO # 0.0 10^3/uL (0.0-0.2); BASO % 0.3 % (0.0-1.0); EOS # 0.1 10^3/uL (0.0-0.5); EOS % 0.8 % (0.0-3.0); LYMPH # 2.5 10^3/uL (1.5-5.0); LYMPH % 27.7 % (24.0-44.0); MONO # 0.6 10^3/uL (0.0-0.8); MONO % 6.8 % (2.0-8.0); NEUTROPHILS # 5.7 10^3/uL (1.5-8.5); NEUTROPHILS % 64.2 % (36.0-66.0); PLATELET COUNT, AUTOMATED 416 10^3/uL (150-450)
[2025-04-16 18:01] LABS: CALCIUM LEVEL 9.4 MG/DL (8.5-10.1); CARBON DIOXIDE LEVEL 23 MMOL/L (20-31); CHLORIDE LEVEL 103 MMOL/L (98-107); CK-MB VALUE MASS 2.0 NG/ML (<3.6); CPK CREATINE PHOSPHOKINASE 212 U/L (34-145); CREATININE FOR GFR 0.91 MG/DL (0.55-1.30); GLOMERULAR FILTRATION RATE 75.4 (>51); MB/CK RELATIVE INDEX 0.94 (< OR =4); POTASSIUM SERUM 5.1 MMOL/L (3.5-5.1); SODIUM LEVEL 137 MMOL/L (136-145)
[2025-04-16 19:35] VITALS: BP 126/72; TEMP 97.5; O2SAT 100
== END 2025-04-16 19:44 | disposition home or self-care (01) ==
LOC: M ED 16:27
DX: R00.2 Palpitations (principal); R09.89 Other specified symptoms and signs involving the circulatory and respiratory systems; R00.0 Tachycardia, unspecified; F41.9 Anxiety disorder, unspecified; Z98.84 Bariatric surgery status